=== PATIENT | female | born 1985 | race Caucasian/White ===

== ENCOUNTER 2022-03-25 14:58 | Emergency (ER) | payer MEDICAID ==
[~2022-03-25] VITALS: Ht 149.9 cm; Wt 54.4 kg
[2022-03-25 15:09] VITALS: BP 121/92
--- NOTE | 2022-03-25 15:13 | NUR ---
TENT1
[2022-03-25] MEDS ORDERED: KETOROLAC 30 MG/ML VIAL IM ONE (15:25)
--- NOTE | 2022-03-25 15:25 | NUR ---
BIB SELF C/O COUGH, 7/10 HOWELL, SORE THROAT X 5 DAYS. COVID TESTED+5DAYS AGO.
[2022-03-25 16:12] VITALS: BP 116/86
[2022-03-25] MEDS ORDERED: ACET-10509 PO (16:40)
[2022-03-25] MEDS ORDERED: PROM118S5 PO (16:40)
--- NOTE | 2022-03-25 16:53 | NUR ---
Patient discharged with v/s stable. Written and verbal after care instructions given. Patient alert, oriented and verbalized understanding of instructions. Ambulatory with steady gait. All questions addressed prior to discharge. ID band removed. Patient advised to follow up with PMD. Rx of Acetaminophen and Promethazine-DM Syrup given. Opportunity to ask questions provided and answered.
--- NOTE | 2022-03-25 16:55 | NUR ---
The patient's care was reviewed and supervised by ED Agency Nurse 9, RN, RN.
== END 2022-03-25 16:53 | disposition home or self-care (01) ==
LOC: MED 14:58
DX: U07.1 COVID-19 (principal)
CPT/HCPCS: 71045; 96372; 99283; J1885; Q0092